=== PATIENT | male | born 1950 | race Caucasian/White ===

== ENCOUNTER 2025-06-22 08:13 | Day surgery (SDC) | payer OTHER ==
[2025-06-19 14:53] VITALS: BMI 25.8
--- NOTE | 2025-06-19 17:32 | P.GSHP ---
History of Present Illness H&P Date: 06/19/25 The patient is a 74-year-old male diagnosed with prostate cancer in September 2023. He initially elected to be managed with active surveillance, but was found to have disease progression. Repeat prostate biopsies in December 2024 showed evidence of prostate cancer in 7 of 13 biopsies, Meghana grade 13. He has elected to be treated with androgen deprivation therapy and radiation therapy. Androgen deprivation therapy was started in February 2025. He now comes for SpaceOAR implant to reduce the risk of rectal toxicity associated with radiation therapy. - Cardiovascular Cardiovascular: Reports high blood pressure - Genitourinary (Female) Genitourinary: Reports urinary frequency Past Medical History Past Medical History: GERD/Reflux, Hyperlipidemia, Hypertension Additional Past Medical History / Comment(s): Prostate CA-receving hormone reduction injection q 6 months, recent GI bleeding-resolved. History of Any Multi-Drug Resistant Organisms: None Reported Past Surgical History: Cholecystectomy Additional Past Surgical History / Comment(s): Colonoscopy 06/19/25 @ [facility], CABG-quadruple bypass 2011, L subclavian stent Past Anesthesia/Blood Transfusion Reactions: No Reported Reaction Additional Past Anesthesia/Blood Transfusion Reaction / Comment(s): No hx of blood transfusion Smoking Status: Former smoker - Past Family History Father Family Medical History: Cancer Additional Family Medical History / Comment(s): stomach CA Brother(s) Family Medical History: Cancer Additional Family Medical History / Comment(s): One brother w/ liver CA, another brother w/ brain/throat/lung CA Medications and Allergies Home Medications Medication Instructions Recorded Confirmed Type Aspirin [Adult Low Dose Aspirin EC] 81 mg PO DAILY 06/19/25 06/19/25 History Losartan [Cozaar] 50 mg PO W/SUPPER 06/19/25 06/19/25 History Metoprolol Succinate [Metoprolol 12.5 mg PO QAM 06/19/25 06/19/25 History Succinate ER] Pantoprazole [Protonix] 40 mg PO QAM 06/19/25 06/19/25 History Rosuvastatin [Crestor] 10 mg PO DAILY 06/19/25 06/19/25 History Allergies Allergy/AdvReac Type Severity Reaction Status Date / Time No Known Allergies Allergy Verified 06/19/25 14:53 Surgical - Exam - General well developed, well nourished, no distress - Respiratory normal respiratory effort - Genitourinary normal penis with no external lesions, testicles non-tender - Psychiatric oriented to time, oriented to person, oriented to place, speech is normal, memory intact Assessment and Plan (1) Malignant neoplasm of prostate Status: Acute Code(s): C61 - MALIGNANT NEOPLASM OF PROSTATE SNOMED Code(s): 257420648 Plan: The SpaceOar implant has been reviewed in detail with the patient. He understands that the rationale for this is to create separation between the prostate and rectum, thus reducing the risk of radiation proctitis. The material begins to breakdown 12-13 weeks following implant, and is reabsorbed by the body. Risks include anesthesia, bleeding, infection, and perineal discomfort. He understands that if the rectal wall is perforated the procedure will need to be aborted.
[2025-06-22] MEDS: IV FLUID CONTINUATION 1,000 ML IV ONE (08:30)
[2025-06-22 08:34] VITALS: TEMP 97.2
[2025-06-22] MEDS: LACTATED RINGERS 1,000 ML BAG IV STA (08:46)
[2025-06-22] MEDS: LIDOCAINE 1% (10MG/ML) FOR IV START INTRADERMA PRN (08:47)
[2025-06-22] MEDS ORDERED: PROPOFOL 10 MG/ML 20 ML VIAL IV ONE (10:10)
[2025-06-22] MEDS ORDERED: MIDAZOLAM 2 MG/2 ML VIAL ONE (10:10)
[2025-06-22] MEDS ORDERED: fentaNYL (PF) 50 MCG/ML 2 ML AMP ONE (10:10)
[2025-06-22] MEDS: LIDOCAINE 2% (PF) 20 MG/ML 10 ML AMP SQ ONE (10:35)
--- NOTE | 2025-06-22 10:37 | P.OP ---
Date of Procedure: 06/22/25 Preoperative Diagnosis: Adenocarcinoma of the prostate Postoperative Diagnosis: Same Procedure(s) Performed: SpaceOAR implant Anesthesia: MAC Surgeon: Marco Antonio Delaney Estimated Blood Loss (ml): 5 IV fluids (ml): 100 Pathology: none sent Condition: stable Disposition: PACU Indications for Procedure: The patient is a 74-year-old male diagnosed with prostate cancer in September 2023. He initially elected to be managed with active surveillance, but was found to have disease progression. Repeat prostate biopsies in December 2024 showed evidence of prostate cancer in 7 of 13 biopsies, Meghana grade 13. He has elected to be treated with androgen deprivation therapy and radiation therapy. Androgen deprivation therapy was started in February 2025. He now comes for SpaceOAR implant to reduce the risk of rectal toxicity associated with radiation therapy. Operative Findings: 11 mm separation created between prostate and rectum. Description of Procedure: The patient was taken to the operating room and placed in the dorsolithotomy position, with his legs supported in Adam stirrups. The external genitalia was prepped and draped sterilely. The Well transrectal ultrasound probe was placed intrarectally. The prostate was imaged. The probe was then placed within the stabilizing stand. A spinal needle was advanced under ultrasonic guidance to the level of the urogenital diaphragm, and lidocaine was used to infiltrate the tissues as the needle was withdrawn. Next, the SpaceOAR needle was passed through the midline of the perineum, 1-2 cm anterior to the anal opening. The needle was slowly advanced under ultrasonic guidance until the needle tip was located within the fat plane between the prostate and rectum, at the level of the mid prostate gland. The needle was confirmed to be midline on the axial imaging. A small amount of normal saline was injected for hydrodissection. Next, the SpaceOAR components were mixed and loaded into the Y connector per protocol. The Y connector was then connected to the needle, and the components were injected slowly over a course of approximately 12 seconds. A total of 10 ml was injected. Significant distance was created between the prostate and rectum, as desired. It should be noted that at no point was there any concern of rectal perforation. The needle was withdrawn, as well as the transrectal ultrasound probe, and the procedure was terminated. The patient tolerated the procedure well and was taken to the recovery room in stable condition.
[2025-06-22 11:11] VITALS: BP 130/65; PULSE 52; RESP 14
== END 2025-06-22 11:24 | disposition home or self-care (01) ==
LOC: OR 08:13
PROVIDERS: ATTEND Urology
DX: C61 Malignant neoplasm of prostate (principal); K21.9 Gastro-esophageal reflux disease without esophagitis; E78.5 Hyperlipidemia, unspecified; I10 Essential (primary) hypertension; Z95.1 Presence of aortocoronary bypass graft; Z95.5 Presence of coronary angioplasty implant and graft; Z87.891 Personal history of nicotine dependence